=== PATIENT | female | born 2000 | race Caucasian/White ===

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

== ENCOUNTER 2021-11-23 12:42 | Emergency (ER) | payer MEDICAID, SELFPAY ==
[2021-11-23 12:43] VITALS: BP 112/72; PULSE 82; RESP 16; TEMP 36.1; O2SAT 100; BMI 22.8
[2021-11-23 13:29] VITALS: BP 112/72; PULSE 82; RESP 16; TEMP 36.1; O2SAT 100
--- NOTE | 2021-11-23 14:44 | EDS_ITS ---
HPI History of Present Illness Chief Complaint: General Illness Informant: patient Narrative Narrative: Patient presents with concern for Covid. Patient was around a patient with Covid. She evidently had relatively close contact. This was the brother of her boyfriend. She started to have symptoms on Monday, 21 November. She started off with nasal congestion runny nose. She states she has been sneezing even more than she has been coughing. She has developed some myalgias. Slight decrease in appetite taste and smell. She has been nauseated the whole time but has been able to eat generally. No diarrhea. She has had slight headache. She went to get Covid testing today. When she got there she felt very nauseated. She actually vomited and then felt lightheaded. She sat herself on the ground but did not pass out. She feels better now. Because this happened they called a squad to bring her here. She did not have chest pain or palpitations. PFSH PFSH Medical History no medical history Home Medications ondansetron 4 mg PO Q8H PRN #10 tab 11/23/21 [Rx Last Taken Unknown] Allergy/AdvReac Type Severity Reaction Status Date / Time No Known Allergies Allergy Verified 11/23/21 12:46 Social History Smoking Status: Never smoker ROS ROS ED Constitutional Constitutional ED: Reports chills, fever(s), subjective and sweats Eyes Eyes: Denies blurry vision or change in vision ENT ENT ED: Reports rhinorrhea and sore throat; Denies ear pain Cardiovascular Cardiovascular: Denies chest pain or palpitations Respiratory/Chest Respiratory/Chest: Reports cough; Denies dyspnea or sputum Gastrointestinal Gastrointestinal: Reports nausea and vomiting; Denies abdominal pain, constipation, diarrhea or melena Genitourinary Genitourinary ED: Denies dysuria or hematuria Musculoskeletal Musculoskeletal: Reports myalgias Integumentary Denies rash Neurologic Neurologic: Reports headache(s); Denies weakness Endocrine Endocrinology: Denies polydipsia or polyuria Allergic/Immunologic Allergic/Immunologic ED: Denies mouth swelling or urticaria EXAM Physical Exam Const Vital Signs: 11/23/21 12:43 11/23/21 13:29 11/23/21 14:38 Temperature 96.9 F L 96.9 F L Temperature Source Temporal Temporal Pulse Rate 82 82 Respiratory Rate 16 16 Respiratory Effort Normal Non-Labored Respiratory Pattern Normal Blood Pressure 112/72 112/72 Blood Pressure Mean 85 85 Pulse Ox 100 100 Oxygen Delivery Method Room Air Room Air Positive well nourished and well developed General Appearance ED: well developed and NAD; Negative for cyanotic or diaphoretic HEENT Reports moist mucous membranes Negative for trauma or tenderness Eyes PERRL and EOMs intact bilaterally General Eye ED: Negative for pale conjunctiva Neck no JVD Chest Wall inspection of chest normal Resp normal respiratory effort and clear to auscultation bilaterally Effort and Inspection: Negative for pain with movement Auscultation: Negative for rales, rhonchi or wheezes Cardio regular rate, regular rhythm and no murmurs GI normal to inspection, nondistended, normoactive bowel sounds and non-tender Palpation: soft Back/Spine no CVA tenderness Extremity normal to inspection General Extremety ED: Negative for edema or tenderness General Extremity: Negative for edema Neuro Sensorium / Orientation: alert; Negative for orientation impaired, lethargic or stuporous Psych mental status grossly normal Skin no rashes or lesions noted MDM MDM MDM Narrative Medical decision making narrative: Patient's Covid test is negative here. However, this is an antigen test that was will miss 15% of positive cases. She has known symptoms of Covid with known exposure. She still does have some naus ea. I will give her Zofran here. I do not think she requires any further work- up. She is not hypoxic nor short of breath. She is not tachycardic or hypotensive. Her exam is relatively normal. She has no criteria for monoclonal therapy. Plan will be to get her home on Zofran with home quarantine. Lab Data Attestation: I reviewed the patient's lab results. Discharge Plan Triage Chief Complaint: General Illness ED Provider: Zen Bagley Dx/Rx/DC Orders Clinical Impression: Close exposure to 2019-nCoV, Nausea and vomiting Prescriptions: New ondansetron 4 mg tablet,disintegrating 4 mg PO Q8H PRN (Reason: nausea and vomiting) Qty: 10 RF: 0 Primary Care Provider: Sina Steele Referrals: Sina Steele MD [Primary Care Provider] - 10-14 Days if not better Disposition Disposition: Home, Self Care
[2021-11-23] MEDS: Ondansetron ODT 4 MG Tablet PO (14:49)
[2021-11-23 14:55] VITALS: BP 118/63; PULSE 79; RESP 15; O2SAT 98
== END 2021-11-23 15:18 | disposition home or self-care (01) ==
PROVIDERS: Emergency Provider Emergency Medicine; PCP Family Medicine
DX: R11.2 Nausea with vomiting, unspecified (principal); Z20.822 Contact with and (suspected) exposure to COVID-19; M79.10 Myalgia, unspecified site; R42 Dizziness and giddiness; R51.9 Headache, unspecified
CPT/HCPCS: 87426; 99284

== ENCOUNTER 2022-09-10 21:54 | Emergency (ER) | payer BC, MEDICAID, SELFPAY ==
[2022-09-10 21:55] VITALS: BP 124/73; PULSE 70; RESP 16; TEMP 36; O2SAT 98; BMI 27.6
--- NOTE | 2022-09-10 22:00 | EX.ED.DYSGE1 ---
HPI History of Present Illness Chief Complaint: Dental Narrative Narrative: I did not participate in this patient's care PFSH PFS Medical History no medical history Home Medications hydrocodone-acetaminophen 5-325mg 5mg-325mg 1 tab PO 09/10/22 [History Last Taken 09/10/22 2030] medroxyprogesterone 150 mg/mL intramuscular suspension mg IM 09/10/22 [History Last Taken 08/10/22] penicillin V potassium 500 mg tablet 500 mg PO 4X/DAY #40 tabs 09/10/22 [Rx Last Taken Unknown] Allergy/AdvReac Type Severity Reaction Status Date / Time No Known Allergies Allergy Verified 09/10/22 21:55 Surgical History (Updated 09/10/22 @ 22:[address] Duane Sarah DO) Hx of wisdom tooth extraction Social History Smoking Status: Never smoker EXAM Physical Exam Const Vital Signs: 09/10/22 21:55 Temperature 96.8 F L Temperature Source Temporal Pulse Rate 70 Respiratory Rate 16 Blood Pressure 124/73 H Blood Pressure Mean 90 Pulse Ox 98 Oxygen Delivery Method Room Air Discharge Plan Triage Chief Complaint: Dental ED Provider: Duane Sarah Dx/Rx/DC Orders Clinical Impression: Postoperative pain Instructions: ED Dental Pain Prescriptions: New penicillin V potassium 500 MG tablet 500 mg PO 4X/DAY Qty: 40 0RF No Action hydrocodone-acetaminophen 5-325 mg tablet 1 tab PO medroxyprogesterone 150 mg/mL suspension IM Primary Care Provider: Airam Lee Referrals: Sina Steele MD [Non-Staff] - 5-7 Days Dentist,Augustus [STAFF PHYSICIAN] - 3-5 Days Disposition Disposition: Home, Self Care Discharge Date/Time: 09/10/22 22:41
--- NOTE | 2022-09-10 22:18 | ED.VIS.DENTA ---
HPI History of Present Illness Chief Complaint: Dental Informant: patient Onset/Context/Timing Onset: Yesterday Context: Gradual Onset Timing: Continuous Quality: Throbbing, sharp Location: Right lower third molar Worsened by: Nothing Relieved by: - (He) Associated Symptoms Assocated Symptom - Dental: jaw swelling; Negative for fever, face swelling, cold sensitivity or hot sensitivity Narrative Narrative: Patient presents with right lower dental pain that began yesterday. Patient states she had her wisdom teeth removed 3 days ago. Patient states she started having worsening pain yesterday. Patient states she has been taking hydrocodone with no improvement. Patient denies any fevers or chills. Patient describes her pain as throbbing and sharp. Patient states it is over the right lower third molar area. Patient states it was better with a warm compress to the area. Patient admits to some swelling of the jaw. Patient denies any hot or cold sensitivity. PFSH PFSH Medical History no medical history no medical history Home Medications hydrocodone-acetaminophen 5-325mg 5mg-325mg 1 tab PO 09/10/22 [History Last Taken 09/10/222029] medroxyprogesterone 150 mg/mL intramuscular suspension mg IM 09/10/22 [History Last Taken 08/10/22] penicillin V potassium 500 mg tablet 500 mg PO 4X/DAY #40 tabs 09/10/22 [Rx Last Taken Unknown] Allergy/AdvReac Type Severity Reaction Status Date / Time No Known Allergies Allergy Verified 09/10/22 21:55 Surgical History (Updated 09/10/22 @ 22:[address] Duane Sarah DO) Hx of wisdom tooth extraction Social History Smoking Status: Never smoker ROS ROS ED Constitutional Constitutional ED: Denies chills or fever(s) Eyes Eyes: Denies blurry vision or change in vision ENT ENT ED: Denies rhinorrhea or sore throat Cardiovascular Cardiovascular: Denies chest pain or palpitations Respiratory/Chest Respiratory/Chest: Denies cough or dyspnea Gastrointestinal Gastrointestinal: Denies nausea or vomiting Genitourinary Genitourinary ED: Denies dysuria or hematuria Musculoskeletal Musculoskeletal: Denies back pain or neck pain Integumentary Denies abscess or rash Neurologic Neurologic: Reports headache(s); Denies weakness Allergic/Immunologic Allergic/Immunologic ED: Denies mouth swelling or urticaria EXAM Physical Exam Const Vital Signs: 09/10/22 21:55 Temperature 96.8 F L Temperature Source Temporal Pulse Rate 70 Respiratory Rate 16 Blood Pressure 124/73 H Blood Pressure Mean 90 Pulse Ox 98 Oxygen Delivery Method Room Air Positive well nourished and well developed General Appearance ED: well developed and NAD HEENT HEENT Narrative: There is some tenderness and mild gingival edema over the right lower third molar area. There is some dried blood in this area. There is no evidence of dry socket. There is no fluctuance. There is no evidence of any abscess. There is no discharge or drainage. Oropharynx is clear. Airway is patent. There is no sublingual edema. There is no anterior neck swelling. There is no evidence of Ludewig's angina. Mouth ED: Yes oral and palatal mucosa normal Mouth: oral and palatal mucosa normal Throat: posterior oropharynx normal Neck no lymphadenopathy, supple and no JVD General: Negative for anterior neck swelling, tenderness or submandibular swelling Lymph Lymphatic: no lymphadenopathy noted Extremity normal to inspection Neuro oriented x3, CN's II-XII intact bilaterally, moves all extremities, no focal motor deficits and no sensory deficits noted Sensorium / Orientation: alert Motor Exam: strength 5/5 throughout Psych mental status grossly normal MDM MDM MDM Narrative Medical decision making narrative: Patient was given a dose of Pen-Vee K here. Patient was given a prescription for Pen-Vee K. Patient was instructed continue using the hydrocodone as needed for pain. Patient was instructed to follow-up with her oral surgeon in 3 to 5 days. Patient understood and was agreeable with the plan. All questions were answered. Discharge Plan Triage Chief Complaint: Dental ED Provider: Duane Sarah Dx/Rx/DC Orders Clinical Impression: Postoperative pain Instructions: ED Dental Pain Prescriptions: New penicillin V potassium 500 MG tablet 500 mg PO 4X/DAY Qty: 40 0RF No Action hydrocodone-acetaminophen 5-325 mg tablet 1 tab PO medroxyprogesterone 150 mg/mL suspension IM Primary Care Provider: Airam Lee Referrals: Sina Steele MD [Non-Staff] - 5-7 Days Dentist,Your [STAFF PHYSICIAN] - 3-5 Days Disposition Disposition: Home, Self Care
[2022-09-10] MEDS: Penicillin Vk 250 MG Tablet 500 MG PO (22:37)
== END 2022-09-10 22:41 | disposition home or self-care (01) ==
PROVIDERS: Emergency Provider Emergency Medicine; Visit Provider Emergency Medicine
DX: G89.18 Other acute postprocedural pain (principal); K08.89 Other specified disorders of teeth and supporting structures
CPT/HCPCS: 99282

== ENCOUNTER → 2023-02-03 | Outpatient (CLI) | payer MEDICAID, SELFPAY ==
--- NOTE | 2023-02-03 17:51 | MRI_ITS ---
EXAM: MR LEFT LOWER EXTREMITY WITHOUT INTRAVENOUS CONTRAST, KNEE CLINICAL INDICATION: Pain TECHNIQUE: Multiplanar and multisequence MR images of the left knee without intravenous contrast. This report was created using [employer] report generation technology. COMPARISON: None. FINDINGS: BONES/JOINTS: Unremarkable. No fracture. No abnormal bone marrow signal. No synovial hypertrophy. No intra-articular body. EXTENSOR MECHANISM: Unremarkable. MEDIAL MENISCUS: Unremarkable. LATERAL MENISCUS: Unremarkable. MEDIAL CAPSULE/SUPPORTING STRUCTURES: Unremarkable. Intact. LATERAL CAPSULE/SUPPORTING STRUCTURES: Unremarkable. Lateral collateral ligamentous complex, inclusive of the popliteal tendon, are intact. ANTERIOR CRUCIATE LIGAMENT: Unremarkable. Intact. POSTERIOR CRUCIATE LIGAMENT: Unremarkable. Intact. MUSCLES: Unremarkable. CARTILAGE: Unremarkable. Intact. FLUID: Unremarkable. No joint effusion. OTHER SOFT TISSUES: Unremarkable. No popliteal cyst. MRI/Lower Ext Joint Only (Routine) IMPRESSION: No significant internal derangement. Electronically Signed: Wicho Lazcano MD at 21:55 EST ,
== END | disposition home or self-care (01) ==
LOC: MRI 17:47
DX: M25.562 Pain in left knee (principal)
CPT/HCPCS: 73721

== ENCOUNTER 2023-07-06 10:00 | Outpatient (RCR) | payer MEDICAID, SELFPAY ==
--- NOTE | 2023-02-21 17:17 | HP.PTEVAL_ITS ---
Patient's Visit Information LORETTA GUILLORY is a 22 year old F referred to Physical Therapy by KARUNA Sagastume with a diagnosis of L knee pain. Date of Evaluation: 02/21/23 Physical Therapist: Daniel Baumann, PT, ATC - Visit Plan Frequency: 2-3x /Week Duration: 4-6 Weeks Plan: L LE stretching and strengthening, balance and proprio, core strengthening, bike and HEP - Subjective Pt reports L knee has been sore for 5-6 years. 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 Pt reports the pain has began to limit her ability to bowl. Pt reports now when she bowls the pain is so bad she cries. Pt notes she had PT at the end of last year at a different facility that made no difference. Pt reports the most pain is under her knee cap. Pt reports on occasion, the pain will shoot up to her hip. Pt denies her L knee locking up, giving out, or popping. Pt denies any prior Hx of L knee complications prior to this episode. Pt reports occasional sleep difficulty secondary to pain. Pt reports she has no stairs at home, but notes she has severe difficulty with stairs at this time. Pt reports she often has difficulty with carrying groceries secondary to pain. 6/10 pain at rest, 10/10 pain at worst. - Pain L knee Pain Intensity (Out of 10): 6 Pain Intensity Range: 10 - Objective Neuro: B LE sensation is WNL to light touch. B achilles 2/3. Palpation: Crepitus with AROM. No obvious deformity. Painful on patellar tendon and medial patellar border. Girth at joint line: R knee 38 cm, L knee 41 cm. ROM: R knee 0-118, L knee 0-135. MMT: R knee flex= 39, ext= 42 #F; L knee flex= 24, ext= 17 #F. Pos 90/90 test (40 degree lag), apley compression and distraction test, pos knee valgus with forward lunge - Balance/Special Test Scores Lower Extremity Functional Score: 60 - Goals Goal 1:: Decrease L knee pain x 50% to aid with sleep Goal Time Frame: 4-6 Weeks Goal 2:: Increase L knee strength x 15#F to aid with return to sport without limitation Goal Time Frame: 4-6 Weeks Goal 3:: Increase L knee flexion ROM x 10 degrees to aid with decreasing pain Goal Time Frame: 4-6 Weeks Goal 4:: I with HEP Goal Time Frame: 4-6 Weeks - Rehabilitation Potential Physical Therapy Diagnosis: Pt has L knee pain, weakness, and 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 For Medicare and Medicare HMO plans, please review the plan of care and approve it. It will need to be FAXED BACK to us at [phone] for Medicare purposes. For Medicare only, by signing this I certify the plan of care. Please let me know if there are questions or concerns regarding this plan of care. Physician Signature: Date:
--- NOTE | 2023-04-17 14:32 | HP.PTREVAL ---
KARUNA Sagastume, It has been my pleasure to treat LORETTA GUILLORY over the last 9 visits for L knee pain. Please see the progress note below for an update on the physical therapy plan of care! Subjective: My knee is still sore when I do daily activities. I wont even try to bowl yet because of the pain Objective/Function: L knee pain ranges from 4-6/10. L knee MMT: flex= 18, ext= 20. L knee ROM: 0-118. L knee pain and strength are improving, but pt is still limited with sport and IADL's. Plan Plan: Continue with major focus on core and L LE strengthening. Balance/Gait/Functional tests - Balance/Special Test Scores Lower Extremity Functional Score: 55 Goals Goal 1:: Decrease L knee pain x 50% to aid with sleep Goal Time Frame: 4-6 Weeks Goal Progress: Progressing Goal 2:: Increase L knee strength x 15#F to aid with return to sport without limitation Goal Time Frame: 4-6 Weeks Goal Progress: Progressing Goal 3:: Increase L knee flexion ROM x 10 degrees to aid with decreasing pain Goal Time Frame: 4-6 Weeks Goal Progress: Not Progressing Goal 4:: I with HEP Goal Time Frame: 4-6 Weeks Goal Progress: Progressing Anticipated Interventions Patient/Client Instruction: Educate patient on: Condition, Plan of Care For the Purpose of:: To improve self management Therapeutic Exercise to Include: Strength training, Endurance training, Balance training, Flexibilty training, Gait and locomotor training, Dynamic Lumbar Stabilization For the Purpose of:: To decrease pain, To increase ROM, To improve muscle performance and motor function Cryotherapy (ice pack, ice massage): Yes For the Purpose of:: To decrease pain Please do not hesitate to contact me at [phone] by phone or if you have questions or concerns regarding this new plan of care! Sincerely, Daniel Baumann, PT, ATC
--- NOTE | 2023-05-26 10:34 | HP.PTREVAL ---
Re-Evaluation Intro: KARUNA Sagastume, It has been my pleasure to treat LORETTA GUILLORY over the last 17 visits for L knee pain. Please see the progress note below for an update on the physical therapy plan of care! Subjective Subjective: I feel better overall, but I still cant bowl yet Objective Objective/Function: L knee pain 4/10 currently, increases to 6/10 after work L knee flex ROM 130 degrees L knee MMT: flex= 28, ext= 32 #F Plan Plan Plan: Continue with major focus on core and L LE strengthening. Balance/Gait/Functional tests Balance/Special Test Scores Lower Extremity Functional Score: 65 Goals Goals Goal 1:: Decrease L knee pain x 50% to aid with sleep Goal Time Frame: 4-6 Weeks Goal Progress: Progressing Goal 2:: Increase L knee strength x 15#F to aid with return to sport without limitation Goal Time Frame: 4-6 Weeks Goal Progress: Progressing Goal 3:: Increase L knee flexion ROM x 10 degrees to aid with decreasing pain Goal Time Frame: 4-6 Weeks Goal Progress: Progressing Goal 4:: I with HEP Goal Time Frame: 4-6 Weeks Goal Progress: Progressing Anticipated Interventions Anticipated Interventions Patient/Client Instruction: Educate patient on: Condition and Plan of Care For the Purpose of:: To improve self management Therapeutic Exercise to Include: Strength training, Endurance training, Balance training, Flexibilty training, Gait and locomotor training and Dynamic Lumbar Stabilization For the Purpose of:: To decrease pain, To increase ROM and To improve muscle performance and motor function Cryotherapy (ice pack, ice massage): Yes For the Purpose of:: To decrease pain Re-Evaluation Ending Re-evaluation ending: Please do not hesitate to contact me at [phone] by phone or if you have questions or concerns regarding this new plan of care! Sincerely, Daniel Baumann, PT, ATC
--- NOTE | 2023-07-06 10:27 | HP.PTDCSUM ---
Discharge Summary D/C summary: It has been my pleasure to treat LORETTA GUILLORY referred by AKRUNA Sagastume, with the diagnosis of L knee pain for a total of 24 visit(s). Discharge Date: Please see the following information for a summary of their discharge status. Subjective Subjective: I felt like I was getting better, but now I feel like I hit a wall. Pain L knee: Pain Intensity (Out of 10): 5 Hips: Pain Intensity (Out of 10): 6 Overall Improvement % Improvement: 25 Objective Objective/Function: L knee pain ranges from 5-7/10 L knee MMT: flex= 23, ext= 24 #F L knee flex ROM: 120 degrees Pt has not progressed as expected at this time. Pain is still limiting and strength is lacking even after a sufficient core and LE strengthening program. Goals Goal 1:: Decrease L knee pain x 50% to aid with sleep Goal Progress: Not Progressing Goal 2:: Increase L knee strength x 15#F to aid with return to sport without limitation Goal Progress: Not Progressing Goal 3:: Increase L knee flexion ROM x 10 degrees to aid with decreasing pain Goal Progress: Not Progressing Goal 4:: I with HEP Goal Progress: Goal Met Plan Plan: Discontinue and recommend pt to follow up with Dr. D/C Information d/c sentence: If there are questions or concerns regarding this patient's physical therapy, please feel free to call me at [phone]. Thank you for the referral of this patient. Sincerely, Daniel Baumann, PT, ATC Balance/Gait/Functional tests Balance/Special Test Scores Lower Extremity Functional Score: 60
== END 2023-07-06 10:39 | disposition home or self-care (01) ==
LOC: PT 10:00
DX: M76.52 Patellar tendinitis, left knee (principal); M25.562 Pain in left knee; G89.29 Other chronic pain; M76.32 Iliotibial band syndrome, left leg
CPT/HCPCS: 97110; 97161; 97164

== ENCOUNTER 2023-09-25 16:30 | Outpatient (RCR) | payer MEDICAID, SELFPAY ==
--- NOTE | 2023-08-25 09:23 | HP.PTEVAL ---
Patient's Visit Information Visit Information Visit Information: LORETTA GUILLORY is a 22 year old F referred to Physical Therapy by KARUNA Sagastume with a diagnosis of Patellar tendonitis. Date of Evaluation: 08/25/23 Physical Therapist: Daniel Baumann, PT, ATC Visit Plan Frequency: 2-3x /Week Duration: 4-6 Weeks Plan: LE stretching to increase flexibility, LE strengthening, Ice, Ultrasound Subjective Subjective: Pt reports L knee has been sore for 5-6 years. 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 Pt reports the pain has began to limit her ability to bowl. Pt reports she has returned to bowling at this time, but continues to be sore after her games. Pt notes she had PT at the end of last year at a different facility that made no difference and then had PT here, which helped very little. Pt reports the most pain is under her knee cap. Pt reports on occasion, the pain will shoot up to her hip. Pt reports her L knee will give out on occasion, but doesnt pop. Pt denies any prior Hx of L knee complications prior to this episode. Pt reports occasional sleep difficulty secondary to pain. Pt reports she has no stairs at home, but notes she has severe difficulty with stairs at this time. Pt notes she has to negotiate 3 flights of stairs to get to her classes, which results in severe pain for hours. 5/10 pain at rest, 8/10 pain at worst. Pt reports she had an MRI recently which revealed no significant abnormalities. Pain L knee: Pain Intensity (Out of 10): 5 Pain Intensity Range: 8 Objective Objective: Neuro: LE sensation WNL to light touch; LE reflexes 1/3 Palpation: No crepitus felt while moving through ROM; point tenderness in medial joint line during distraction during medial meniscus. ROM: - R Knee: 0 - 130 deg - L Knee: 0 - 10 - 110 deg MMT: - L Knee Flex: 20 #F; Ext: 19 #F - R Knee Flex: 28 #F; Ext: 48 #F Special tests: Positive Codie's test; Positive 90/90 (45 deg lag); Positive UGO test (indicating tight hips); Positive Andrew test, Positive Trujillo test indicating tight hamstrings Balance/Special Test Scores Lower Extremity Functional Score: 62 Goals Goal 1:: Pt. to improve L Knee Flex 8 #F and L Knee Ext: 29 #F to match contralateral R knee in order to return to prior level of function and return to sport and school pain free. Goal Time Frame: 4-6 Weeks Goal 2:: Pt. to improve L Knee flexion ROM to 130 deg of flexion and 0 deg of extension to match contralateral R knee in order to return to prior level of function and return to sport and school pain free. Goal Time Frame: 4-6 Weeks Goal 3:: Pt. to improve the lower extremity functional score by 9 points to show a meaningful clinical important difference to aid in returning to prior level of function and return to sport and school pain free. Goal Time Frame: 4-6 Weeks Goal 4:: Pt. to be I in HEP Goal Time Frame: 4-6 Weeks Rehabilitation Potential Physical Therapy Diagnosis: Pain, weakness, lack of ROM and disrupted ADLs and iADLs secondary to patellar tendonitis Rehabilitation Potential: Good Anticipated Interventions Patient/Client Instruction: Educate patient on: Condition and Plan of Care For the Purpose of:: To improve self management Therapeutic Exercise to Include: Strength training, Body mechanics, Flexibilty training and Active ROM For the Purpose of:: To decrease pain, To increase ROM, To increase flexibility/ROM, To improve endurance, To improve health and function and To improve self management Cryotherapy (ice pack, ice massage): Yes (To reduce pain) Ultrasound (thermal/non thermal): Yes (To decrease inflammation, increase blood flow and reduce pain) For the Purpose of:: To decrease pain, To decrease swelling/inflammation and To decrease soft tissue restriction Text: Thank you for the opportunity to evaluate your patient. For Medicare and Medicare HMO plans, please review the plan of care and approve it. It will need to be FAXED BACK to us at [phone] for Medicare purposes. For Medicare only, by signing this I certify the plan of care. Please let me know if there are questions or concerns regarding this plan of care. Physician Signature: Date:
--- NOTE | 2023-11-23 08:19 | HP.PT.NRP ---
Patient Information Patient Information: OLRETTA GUILLORY was seen in my office for initial evaluation on 08/25/23. The following Plan of Care was established for this patient: POC Established Initial Frequency: 2-3x /Week Initial Duration: 4-6 Weeks Anticipated Interventions Patient/Client Instruction: Educate patient on: Condition and Plan of Care For the Purpose of:: To improve self management Therapeutic Exercise to Include: Strength training, Body mechanics, Flexibilty training and Active ROM For the Purpose of:: To decrease pain, To increase ROM, To increase flexibility/ROM, To improve endurance, To improve health and function and To improve self management Cryotherapy (ice pack, ice massage): Yes (To reduce pain) Ultrasound (thermal/non thermal): Yes (To decrease inflammation, increase blood flow and reduce pain) For the Purpose of:: To decrease pain, To decrease swelling/inflammation and To decrease soft tissue restriction Last Seen Last Seen: This patient was last seen in our office . Pertinent comments regarding their Physical therapy will appear below: Pt was treated for 6 PT visits for knee pain through the date of 09/25/23. Pt has not returned through todays date and is discontinued at this time. At this point I will be discontinuing this patient from physical therapy. I would be happy to see this patient again in the future if found appropriate by the physician. Thank you! Daniel Baumann, PT, ATC Balance/Gait/Functional tests Balance/Special Test Scores Lower Extremity Functional Score: 62
== END 2023-09-25 19:00 | disposition home or self-care (01) ==
LOC: PT 16:30
DX: M76.52 Patellar tendinitis, left knee (principal); M25.562 Pain in left knee; M76.32 Iliotibial band syndrome, left leg; M70.52 Other bursitis of knee, left knee; G89.29 Other chronic pain
CPT/HCPCS: 97035; 97110; 97161

== ENCOUNTER → 2024-04-03 | Outpatient (CLI) | payer MEDICAID, SELFPAY ==
--- NOTE | 2024-04-03 09:30 | RAD_ITS ---
STUDY: X-RAY LEFT FOOT, FIFTH TOE REASON FOR EXAM: Female, 23 years old. Left little to inj TECHNIQUE: 3 view(s) of the toe were obtained. COMPARISON: None. FINDINGS: Normal visualized metatarsus. Normal metatarsophalangeal (M.T.P) joint. Normal interphalangeal joints. Normal phalanges and interphalangeal joints. The soft tissue structures are unremarkable. RAD/Toe(s) Min 2 Views IMPRESSION: Normal x-ray of the toe. Electronically Signed: Raulito Mitchell MD at 9:55 EDT ,
== END | disposition home or self-care (01) ==
PROVIDERS: Referring Provider Physician Assistant Surgical; Visit Provider Physician Assistant Surgical
DX: S90.122A Contusion of left lesser toe(s) without damage to nail, initial encounter (principal); X58.XXXA Exposure to other specified factors, initial encounter
CPT/HCPCS: 73660

== ENCOUNTER → 2024-06-11 | Outpatient (CLI) | payer MEDICAID, SELFPAY ==
[2024-06-17 18:04] LABS: HPV Reflexed? NOT INDICATED
== END | disposition home or self-care (01) ==
LOC: LABSPEC 09:34
PROVIDERS: PCP Nurse Practitioner Family; Visit Provider Nurse Practitioner Family
DX: Z01.419 Encounter for gynecological examination (general) (routine) without abnormal findings (principal)
CPT/HCPCS: 88142

== ENCOUNTER 2024-10-27 19:06 | Emergency (ER) | payer MEDICAID, SELFPAY ==
[2024-10-27 19:07] VITALS: BP 114/80; PULSE 80; RESP 18; TEMP 37; O2SAT 98
--- NOTE | 2024-10-27 19:37 | EDS_ITS ---
HPI History of Present Illness Chief Complaint: Cold Sx Narrative Narrative: Chief complaint and HPI: Cold symptoms. 23-year-old female with no significant past medical history presents for evaluation of cold symptoms. Patient states for the past 5 days she has had headache, nasal congestion, cough, and nausea. She states that she has developed some nonbloody emesis and was unable to take her [id number] cold medicine today. She denies any fever, shortness of breath, chest pain, diarrhea, dysuria. Patient states that she is on contraceptives and does not believe herself to be . Review of systems: See HPI Medications: As listed on the chart Allergies: As listed on the chart PFSH: Per chart Vital signs: As listed on the chart. Reviewed. Physical exam: Gen: A&O x3, NAD Head: Normocephalic, atraumatic Eyes: No sclera icterus, conjunctiva clear, PERRL, EOMI ENT: TMs clear BL, mildly dry mucous membranes, posterior oropharynx unremarkable, uvula midline, tonsils not enlarged, no tonsillar exudates, no sinus tenderness, positive nasal congestion Neck: Trachea midline, No JVD, Full ROM, No meningismus CV: RRR, no murmurs, no peripheral edema Resp: Lungs CTA BL, no w/r/c GI: Abd soft, non-distended, non-tender, no r/r/g Musc: Full ROM, no deformity Skin: Warm, dry, no rash Neuro: Alert, oriented, grossly intact, sensation intact Psych: Cooperative, appropriate mood and affect PFS PFS Home Medications ?Medication ?Instructions ?Recorded ?Last Taken ?Type drospirenone (contraceptive) 4 mg 1 tab PO DAILY 07/17/23 Unknown History (28) tablet (Slynd) ondansetron 4 mg disintegrating 4 mg PO Q8H PRN PRN Nausea #10 tabs 10/27/24 Unknown Rx tablet Allergy/AdvReac Type Severity Reaction Status Date / Time No Known Allergies Allergy Verified 10/27/24 19:07 Surgical History Hx of wisdom tooth extraction Social History Smoking Status: Never smoker EXAM Physical Exam Const Vital Signs: 10/27/24 19:07 10/27/24 19:14 10/27/24 19:15 Temperature 98.6 F Temperature Source Oral Pulse Rate 80 Respiratory Rate 18 Respiratory Effort Normal Non-Labored Normal Non-Labored Respiratory Depth Normal Respiratory Pattern Normal Normal Blood Pressure 114/80 Blood Pressure Mean 91 Pulse Ox 98 Oxygen Delivery Method Room Air Room Air 10/27/24 21:07 10/27/24 22:43 Temperature 97.8 F Temperature Source Pulse Rate 75 78 Respiratory Rate 18 18 Respiratory Effort Respiratory Depth Respiratory Pattern Blood Pressure 113/51 L 107/61 Blood Pressure Mean 71 76 Pulse Ox 100 100 Oxygen Delivery Method Room Air MDM MDM MDM Narrative Medical decision making narrative: 23-year-old female presents for evaluation of cold-like symptoms. Symptoms consist of headache, nasal congestion, sore throat, cough, nausea, vomiting. Patient is mildly dry on physical exam NS bolus and Zofran ordered. Toradol ordered but will not be given until urine is negative. Differential diagnosis includes but is not limited to viral illness, influenza, COVID-19 infection, pneumonia, dehydration, UTI, , electrolyte abnormality, suspect less likely intra-abdominal pathology. Basic labs ordered including chest x-ray. CBC without leukocytosis or anemia. CMP without electrolyte abnormality or SHANT. No transaminitis. Lipase unremarkable. UA negative for UTI. Urine negative. Chest x-ray was interpreted by me, ED physician no pneumonia, effusion, cardiomegaly, pneumothorax. On reevaluation, patient's headache has improved however she is still endorsing nausea. Reglan ordered with p.o. challenge. Patient's nausea improved. Patient is able to tolerate p.o. intake without any vomiting. Patient is stable to discharge home. Suspect viral etiology. Follow-up with PCP. Patient confirmed understanding of plan. Impression: 1. Viral syndrome 2. Nausea and vomiting Lab Data Labs: Laboratory Results - last 24 hr 10/27/24 19:49 WBC 8.0 RBC 4.34 Hgb 14.2 Hct 39.2 MCV 90.3 MCH 32.7 H MCHC 36.2 H RDW Std Deviation 43.3 RDW Coeff of Shadia 13.0 Plt Count 282 MPV 9.5 Immature Gran % (Auto) 0.100 Neut % (Auto) 62.7 Lymph % (Auto) 27.5 [place] % (Auto) 7.8 Eos % (Auto) 1.5 Baso % (Auto) 0.4 Absolute Neuts (auto) 5.0 Absolute Lymphs (auto) 2.21 Nucleated RBC % 0 Sodium 140 Potassium 3.7 Chloride 107 Carbon Dioxide 26.0 Anion Gap 7 BUN 14 Creatinine 1.00 Estim Creat Clear Calc 83.45 Est GFR (MDRD) Af Amer 89 Est GFR (MDRD) Non-Af 73 BUN/Creatinine Ratio 14.1 Glucose 96 Calcium 9.3 Total Bilirubin 0.30 AST 11 L ALT 17 Alkaline Phosphatase 75 Total Protein 7.4 Albumin 3.7 Globulin 3.7 Albumin/Globulin Ratio 1.0 Lipase 28 Urine Color Yellow Urine Clarity Clear Urine pH 8.0 Ur Specific [place] 1.015 Urine Protein Negative Urine Glucose (UA) Normal Urine Ketones Negative Urine Occult Blood Negative Urine Nitrite Negative Urine Bilirubin Negative Urine Urobilinogen Normal Ur Leukocyte Esterase Negative Urine RBC 0 SEEN Urine WBC 0-5 SEEN Ur Squamous Epith Cells 0-5 SEEN Urine Bacteria RARE Urine Mucus 0 SEEN Urine Test Negative Radiography Diagnostic Testing: Clinical Impression(s) from Imaging Studies Chest X-Ray 10/27/24 20:00 IMPRESSION: No radiographic evidence of acute cardiopulmonary disease. Electronically Signed: Daniel Mcintyre MD at 20:53 EST Reading Location ID and State: [address] [place] [address] , Service support , Discharge Plan Triage Chief Complaint: Cold Sx Other Complaint: Nausea/Vomiting ED Provider: Abbe Pina Dx/Rx/DC Orders Clinical Impression: Viral syndrome Instructions: ED Viral Syndrome (Adult) Prescriptions: New ondansetron 4 mg tablet,disintegrating 4 mg PO Q8H PRN PRN (Reason: Nausea) Qty: 10 0RF No Action Slynd 4 mg (28) tablet 1 tab PO DAILY Patient Comments: TAKE 1 TABLET BY MOUTH EVERY DAY Primary Care Provider: Care Physician,No Primary Referrals: Fantasma Davis MD [Med Staff - Active Staff] - 3-5 Days Care Physician,No Primary [Primary Care Provider] - Activity Restrictions/Additional Instructions: Follow-up with your primary care physician if you do not have one follow-up with the one above. Return back to the ED if symptoms change or worsen. Print Language: Armenian Disposition Disposition: Home, Self Care Discharge Date/Time: 10/27/24 22:47
[2024-10-27] MEDS: Ondansetron 4 MG/2 ML Vial IV (19:50)
[2024-10-27] MEDS: 0.9% Normal Saline (1000mL) 1,000 ML 1000 ML IV (19:50)
--- NOTE | 2024-10-27 20:00 | RAD_ITS ---
EXAM: XR CHEST, 2 VIEWS CLINICAL INDICATION: Cough TECHNIQUE: Frontal and lateral views of the chest. COMPARISON: No relevant prior studies available. FINDINGS: LUNGS AND PLEURAL SPACES: Unremarkable. No consolidation or edema. No pneumothorax. No effusion. HEART: Unremarkable. Cardiac silhouette not enlarged. MEDIASTINUM: Central airways and mediastinal contour are unremarkable. BONES/JOINTS: Unremarkable. No acute fracture. SOFT TISSUES: Unremarkable. RAD/Chest PA and Lateral IMPRESSION: No radiographic evidence of acute cardiopulmonary disease. Electronically Signed: Daniel Mcintyre MD at 20:53 EST ,
[2024-10-27 20:01] LABS: Mucous, Urine 0 SEEN /hpf (<or=2+); Red Blood Cells-Urine 0 SEEN /hpf (0-5)
[2024-10-27 20:05] LABS: Absolute Lymphocyte Count 2.21 X10^3/uL (0.83-4.51); Basophil# 0.03 X10^3/uL; Basophil% 0.4 % (0-1); Eosinophil# 0.12 X10^3/uL; Eosinophils% 1.5 % (0-5); Hematocrit 39.2 % (37-47); Hemoglobin 14.2 g/dL (12.0-15.0); Lymphocyte # 2.21 X10^3/ul (0.83-4.51); Lymphocyte % 27.5 % (19-41); Mean Corp Hgb Conc 36.2 g/dL (32-36); Mean Corpuscular Hgb 32.7 pg (27.0-32.0); Mean Corpuscular Volume 90.3 fL (81-99); Mean Platelet Vol. 9.5 fl (6.2-12.0); Monocyte# 0.63 X10^3/uL; Monocyte% 7.8 % (0-10); NRBC Flagged by Analyzer 0 % (0-5); Neutrophil # 5.03 X10^3/uL (2.7-7.7); Neutrophil % 62.7 % (47-70); Platelet Count 282 K/mm3 (150-450); RBC Distribution Width SD 43.3 fl (35.1-43.9); Red Blood Count 4.34 M/mm3 (4.2-5.4)
[2024-10-27 20:08] LABS: Color, Urine Yellow (Yellow); Glucose, Dipstick Normal (Normal); Ketone-Dipstick Negative (Negative); Leukocyte Esterase-Dipstick Negative /ul (Negative); Nitrite-Dipstick Negative (Negative); Occult Blood-Urine Negative /ul (Negative); Protein-Dipstick Negative (Negative); Specific Gravity, Urine 1.015 (1.002-1.030); Urine Bilirubin Dipstick Negative (Negative); Urine Clarity Clear (Clear); Urine Urobilinogen Normal (Normal)
[2024-10-27 20:21] LABS: AST(SGOT) 11 U/L (15-37); Alanine Aminotransfer ALT/SGPT 17 U/L (13-56); Albumin, Serum 3.7 g/dL (3.2-5.0); Alkaline Phosphatase 75 U/L (45-117); Anion Gap 7 (5-15); BUN 14 mg/dL (7-18); BUN/Creat Ratio 14.1 RATIO (10-20); Calcium,Total 9.3 mg/dL (8.5-10.1); Chloride 107 mmol/L (98-107); EST Glomerular Filtration Rate 73 mL/min (>60); Est Glom Filt Rate - Afr Amer 89 mL/min (>60); Estimated Creatinine Clearance 83.45 ml/min; Globulin 3.7 g/dL (2.2-4.2); Glucose 96 mg/dL (74-106); Lipase 28 U/L (13-75); Potassium 3.7 mmol/L (3.5-5.1); Protein, Total 7.4 g/dL (6.4-8.2); Sodium Level 140 mmol/L (136-145)
[2024-10-27 20:50] LABS: Internal QC Validated? YES +Cl - CLEAR BKGD; Pregnancy, Urine Negative Negative
[2024-10-27 20:52] LABS: Bacteria RARE /hpf (None Seen); Squamous Epithelial Cells - UA 0-5 SEEN /hpf (5-10); White Blood Cells 0-5 SEEN /hpf (0-5)
[2024-10-27] MEDS: Ketorolac 15 MG/ML Vial IV (21:03)
[2024-10-27 21:07] VITALS: BP 113/51; PULSE 75; RESP 18; O2SAT 100
[2024-10-27] MEDS: Metoclopramide 10 MG/2 ML Vial 5 MG IV (21:27)
[2024-10-27 22:43] VITALS: BP 107/61; PULSE 78; RESP 18; TEMP 36.6; O2SAT 100
== END 2024-10-27 22:47 | disposition home or self-care (01) ==
PROVIDERS: Emergency Provider Surgery; Referring Provider Surgery; Visit Provider Surgery
DX: B34.9 Viral infection, unspecified (principal)
CPT/HCPCS: 71046; 80053; 81001; 81025; 83690; 85025; 87631; 96361; 96374; 96375; 99285; A4216; J2405

== ENCOUNTER → 2025-04-28 | Outpatient (CLI) | payer MEDICAID, SELFPAY ==
[2025-04-28 10:40] LABS: Absolute Lymphocyte Count 2.59 X10^3/uL (0.83-4.51); Absolute Neutrophil Count 2.4 X10^3/uL (2.0-7.7); Basophil# 0.03 X10^3/uL; Basophil% 0.5 % (0-1); Eosinophil# 0.17 X10^3/uL; Eosinophils% 3.1 % (0-5); Hematocrit 39.6 % (37-47); Hemoglobin 13.2 g/dL (12.0-15.0); Lymphocyte # 2.59 X10^3/ul (0.83-4.51); Lymphocyte % 46.5 % (19-41); Mean Corp Hgb Conc 33.3 g/dL (32-36); Mean Corpuscular Hgb 29.9 pg (27.0-32.0); Mean Corpuscular Volume 89.6 fL (81-99); Mean Platelet Vol. 9.4 fl (6.2-12.0); Monocyte# 0.39 X10^3/uL; NRBC Flagged by Analyzer 0 % (0-5); Neutrophil # 2.38 X10^3/uL (2.7-7.7); Neutrophil % 42.7 % (47-70); Platelet Count 289 K/mm3 (150-450); RBC Distribution Width SD 42.7 fl (35.1-43.9); Red Blood Count 4.42 M/mm3 (4.2-5.4); White Blood Count 5.6 K/mm3 (4.4-11.0)
[2025-04-28 11:27] LABS: ALB/GLOB Ratio 1.5 RATIO (0.9-2.4); AST(SGOT) 20 U/L (<=31); Alanine Aminotransfer ALT/SGPT 15 U/L (<=34); Albumin, Serum 4.2 g/dL (3.5-5.0); Alkaline Phosphatase 82 U/L (35-104); Anion Gap 12 (5-15); BUN 14 mg/dL (4-19); BUN/Creat Ratio 15.6 RATIO (10-20); Calcium,Total 9.6 mg/dL (7.6-11.0); Carbon Dioxide 20.9 mmol/L (21.0-32.0); Chloride 109 mmol/L (98-108); Creatinine, Serum 0.89 mg/dL (0.70-1.20); EST Glomerular Filtration Rate 94 (>60); Ferritin 72 ng/mL (22-378); Globulin 2.9 g/dL (2.2-4.2); Glucose 88 mg/dL (70-99); Potassium 3.9 mmol/L (3.3-5.1); Protein, Total 7.1 g/dL (5.9-8.4); Sodium Level 142 mmol/L (133-145); Total Bilirubin 0.44 mg/dL (0.00-1.30); Vitamin B12 413 pg/mL (180-914); Vitamin D,25 Hydroxy 20.4 ng/mL (30-100)
[2025-04-28 12:31] LABS: Hemoglobin A1c 5.2 % (<=5.6)
[2025-04-30 17:08] LABS: Thyroglobulin Antibody < 1.0 IU/mL (0.0-0.9); Thyroid Peroxidase AB < 9 IU/mL (0-34); Thyroid Stim Immunoglob <0.10 IU/L (0.00-0.55)
== END | disposition home or self-care (01) ==
LOC: PAVLAB 10:22
PROVIDERS: PCP Nurse Practitioner Family; Referring Provider Family Medicine; Visit Provider Family Medicine
DX: R53.83 Other fatigue (principal)
CPT/HCPCS: 36415; 80053; 82306; 82533; 82607; 82728; 83036; 83735; 84439; 84443; 84445; 85025; 86376; 86800

== ENCOUNTER 2025-06-30 21:13 | Emergency (ER) | payer MEDICAID, SELFPAY ==
[2025-06-30 21:14] VITALS: BP 123/72; PULSE 86; RESP 16; TEMP 36; O2SAT 100; BMI 30.9
--- NOTE | 2025-06-30 21:23 | EX.ED.DYSGE1 ---
HPI History of Present Illness Chief Complaint: Ear Problem Detail of Chief Complaint: Painful expanding bump right earlobe Onset/Context/Timing Onset: Days Context: Sudden Onset Timing: Continuous Quality: Small painful bump where the earlobe attaches to the ear. Location: [place] Current Severity: Mild Maximum Severity: Moderate Worsened by: Palpation Relieved by: Nothing Associated Symptoms Associated Symptoms: None Narrative Narrative: Patient is a 24-year-old female. She presents for painful bump that is got bigger since onset a couple of days ago. She denies fever, chills night sweats. Denies a traumatic fever, heart murmur mitral valve prolapse or SBE. She has had no new ear piercings. She has not noted redness to her ear. Prior similar symptoms: No Recent Illness/Hospitalization: No PFSH PFSH Home Medications ?Medication ?Instructions ?Recorded ?Last Taken ?Type drospirenone (contraceptive) 4 mg 1 tab PO DAILY 07/17/23 Unknown History (28) tablet (Slynd) ondansetron 4 mg disintegrating 4 mg PO Q8H PRN PRN Nausea #10 tabs 10/27/24 Unknown Rx tablet Allergy/AdvReac Type Severity Reaction Status Date / Time No Known Allergies Allergy Verified 06/30/25 21:15 Surgical History Hx of wisdom tooth extraction Social History Smoking Status: Never smoker ROS ROS ED Constitutional Constitutional ED: Denies chills, fever(s), subjective or sweats ENT ENT ED: Reports ear pain right ([place]); Denies rhinorrhea or sore throat Cardiovascular Cardiovascular: Denies chest pain Respiratory/Chest Respiratory/Chest: Denies cough or dyspnea Musculoskeletal Musculoskeletal: Denies neck pain Integumentary Reports abscess; Denies rash Hematologic/Lymphatic Hematologic/Lymphatic: Reports systems reviewed and no addt'l complaints, except as documented EXAM Physical Exam Const Vital Signs: 06/30/25 21:14 Temperature 96.8 F L Temperature Source Temporal Pulse Rate 86 Respiratory Rate 16 Blood Pressure 123/72 H Blood Pressure Mean 89 Pulse Ox 100 Oxygen Delivery Method Room Air Positive well nourished and well developed Constitutional Narrative: Blood pressure slightly elevated. She is afebrile. General Appearance ED: well developed and NAD HEENT HEENT Narrative: Head is atraumatic no cephalic. Ears remarkable for a small painful fluctuant area involving the earlobe where it attaches to the skull. There is no erythema or warmth noted. There is no cervical lymphadenopathy. Eyes PERRL and EOMs intact bilaterally Neck no lymphadenopathy, supple and no JVD Cardio regular rate, regular rhythm, S1 normal heart sound, S2 normal heart sound and no murmurs Neuro oriented x3 and CN's II-XII intact bilaterally Sensorium / Orientation: alert Psych mental status grossly normal Skin no rashes or lesions noted and skin turgor normal Skin Narrative: Described in the HEENT portion of the EMR MDM MDM MDM Narrative Medical decision making narrative: Suspect patient has a small abscess versus a infected sebaceous cyst. Plan is I&D. Patient was consented for I&D. Patient area was prepped draped. Local anesthetic. Small incision was made with 15 blade. The capsule of the infected sebaceous cyst was entered. There was small amount of cottage cheeselike material that was expressed from the cystic lesion. Nurse applied dressing and patient was discharged home in stable improved condition. Procedures Other Procedures Procedure(s): I&D of infected sebaceous cyst described under the MDM/plan section of the EMR Discharge Plan Triage Chief Complaint: Ear Problem ED Provider: Junior Jo Dx/Rx/DC Orders Clinical Impression: Infected sebaceous cyst of skin Instructions: ED Abscess Incision And ... Prescriptions: No Action Slynd 4 mg (28) tablet 1 tab PO DAILY Patient Comments: TAKE 1 TABLET BY MOUTH EVERY DAY ondansetron 4 mg tablet,disintegrating 4 mg PO Q8H PRN PRN (Reason: Nausea) Qty: 10 0RF Primary Care Provider: Alee Guillaume Referrals: Alee Guillaume, [employer]MENT SPECIALIST-C [Primary Care Provider] - 3-5 Days if not improving Print Language: German Disposition Disposition: Home, Self Care
[2025-06-30] MEDS: Lidocaine 1% (20 ml mdv) 20 ML Vial INFILT (21:33)
[2025-06-30 23:06] VITALS: BP 113/64; PULSE 72; RESP 16; TEMP 36.6; O2SAT 100
== END 2025-06-30 23:07 | disposition home or self-care (01) ==
PROVIDERS: Emergency Provider Emergency Medicine; PCP Nurse Practitioner Family; Visit Provider Emergency Medicine
DX: L72.3 Sebaceous cyst (principal)
CPT/HCPCS: 10060; 69000; 99282

== ENCOUNTER 2025-07-14 22:19 | Emergency (ER) | payer MEDICAID, SELFPAY ==
[2025-07-14 22:20] VITALS: BP 143/87; PULSE 76; RESP 16; TEMP 37; O2SAT 100; BMI 30.9
--- NOTE | 2025-07-14 22:53 | EDS_ITS ---
HPI History of Present Illness Chief Complaint: Chest Other Informant: patient Onset/Context/Timing Onset: Days (2) Context: Gradual Onset Timing: Continuous Quality: Sharp, throbbing Location: Left shoulder, left upper chest Worsened by: Expiration Relieved by: Nothing Narrative Narrative: Patient presents with pain in her left shoulder and left upper chest that has been constant for the past 2 days. Patient describes it as sharp and throbbing. Patient states it is worse with expiration. Patient states nothing makes it better. Patient states she took ibuprofen tonight with no improvement. Patient denies any fevers or chills. Patient denies any shortness of breath. Patient states that sometimes she feels like her heart is racing. Patient denies any nausea or vomiting. Patient denies any diaphoresis. PFSH PFSH Medical History no medical history no medical history Home Medications ?Medication ?Instructions ?Recorded ?Last Taken ?Type drospirenone (contraceptive) 4 mg 1 tab PO DAILY 07/17 Unknown History (28) tablet (Slynd) ondansetron 4 mg disintegrating 4 mg PO Q8H PRN PRN Na usea #10 tabs 10/27/24 Unknown Rx tablet naproxen 500 mg tablet 500 mg PO BID PRN #20 tabs 0 07/14/25 Unknown Rx Allergy/AdvReac Type Severity Reaction Status Date / Time No Known Allergies Allergy Verified 07/14/25 22:21 Surgical History Hx of wisdom tooth extraction Social History Smoking Status: Never smoker ROS ROS ED Constitutional Constitutional ED: Denies chills or fever(s) Eyes Eyes: Denies blurry vision or change in vision ENT ENT ED: Denies rhinorrhea or sore throat Cardiovascular Cardiovascular: Reports chest pain and racing heartbeat Respiratory/Chest Respiratory/Chest: Denies cough or dyspnea Gastrointestinal Gastrointestinal: Denies nausea or vomiting Genitourinary Genitourinary ED: Denies dysuria or hematuria Musculoskeletal Musculoskeletal: Reports back pain; Denies neck pain Integumentary Denies abscess or rash Neurologic Neurologic: Reports headache(s); Denies weakness Allergic/Immunologic Allergic/Immunologic ED: Denies mouth swelling or urticaria EXAM Physical Exam Const Vital Signs: 07/14/25 22:20 07/14/25 22:38 Temperature 98.6 F Temperature Source Oral Pulse Rate 76 Respiratory Rate 16 Respiratory Effort Normal Respiratory Pattern Normal Blood Pressure 143/87 H Blood Pressure Mean 105 Pulse Ox 100 Oxygen Delivery Method Room Air Positive well nourished and well developed Constitutional Narrative: BMI is 30.9. General Appearance ED: well developed and NAD HEENT Reports moist mucous membranes Neck no lymphadenopathy, supple and no JVD Chest Wall Chest Narrative: There is tenderness over the left upper chest wall and left lateral chest wall. There is no bony crepitance or step-off. There is no subcutaneous emphysema palpated. Resp normal respiratory effort and clear to auscultation bilaterally Cardio regular rate and regular rhythm GI non-tender and non-distended Palpation: soft Extremity Extremity Narrative: There is mild tenderness over the left shoulder region. There is no edema or ecchymosis. There is no bony crepitance or step-off. There is no deformity noted. Range of motion is limited in all motions of the left shoulder secondary to pain. Strength is 5/5 bilateral in the upper extremities. There are no sensory deficits noted. Radial pulses are equal bilaterally. Neuro oriented x3, CN's II-XII intact bilaterally and no sensory deficits noted Sensorium / Orientation: alert Motor Exam: strength 5/5 throughout Psych mental status grossly normal MDM MDM MDM Narrative Medical decision making narrative: Differential diagnosis includes musculoskeletal pain, anxiety, pneumothorax, pneumonia, bronchitis, electrolyte abnormality, pulmonary embolism, and viral illness. Chest x-ray will be obtained to assess for pneumonia, bronchitis, pneumothorax. X-rays of the left shoulder will be obtained to assess for degenerative arthritis. CBC will be obtained to assess for leukocytosis and anemia. Basic metabolic profile will be obtained to assess for electrolyte abnormality and renal function. D-dimer will be obtained to assess for pulmonary embolism. Lab Data Attestation: I reviewed the patient's lab results. Lab results narrative: CBC was reviewed and was within normal limits. Basic metabolic profile was reviewed and was within normal limits. Serum hCG was reviewed and was negative. D-dimer was reviewed and was less than 0.27. Labs: Laboratory Results - last 24 hr 07/14/25 23:05 WBC 8.7 RBC 4.13 L Hgb 12.5 Hct 37.0 MCV 89.6 MCH 30.3 MCHC 33.8 RDW Std Deviation 43.5 RDW Coeff of Shadia 13.2 Plt Count 278 MPV 9.4 Immature Gran % (Auto) 0.200 Neut % (Auto) 47.1 Lymph % (Auto) 42.4 H Hendricks % (Auto) 8.0 Eos % (Auto) 2.1 Baso % (Auto) 0.2 Absolute Neuts (auto) 4.1 Absolute Lymphs (auto) 3.67 Nucleated RBC % 0 D-Dimer Quant (PE/DVT) < 0.27 L Sodium 140 Potassium 3.7 Chloride 107 Carbon Dioxide 20.7 L Anion Gap 12 BUN 15 Creatinine 1.02 Estim Creat Clear Calc 85.46 Est GFR (MDRD) Non-Af 79 BUN/Creatinine Ratio 14.4 Glucose 116 H Calcium 9.4 Serum , Qual NEGATIVE Radiography Chest X-Ray - ED: 2 View, Read by ED Physician, Read by Radiologist and No Acute Disease Diagnostic Testing: Clinical Impression(s) from Imaging Studies Chest X-Ray 07/14/25 23:25 IMPRESSION: No acute cardiopulmonary abnormalities. Reading Location: [facility] Shoulder X-Ray 07/14/25 23:25 IMPRESSION: No acute osseous abnormalities. Reading Location: [facility] PA and lateral chest x-ray was obtained. There are 2 views. On my independent interpretation, lung aiken are clear. There is normal cardiac silhouette. Bony thorax is normal. There is no acute process noted. Radiologist also interpreted the x-ray and agrees. X-rays of the left shoulder were obtained. There are 4 views. On my independent interpretation, there is no acute fracture or dislocation noted. There are no degenerative changes noted. There is no rib fracture noted. Radiologist also interpreted the x-rays and agrees. Treatment and Re-Evaluation :: Patient was given IV fluids. Patient was advised of her findings. Patient was advised that this could be musculoskeletal pain. Patient was given an injection of Toradol here. Patient was given a prescription for Naprosyn. Patient was instructed use ice to the area. Patient was instructed to follow-up with her primary care physician in 5 to 7 days. Patient understood and was agreeable with the plan. All questions were answered. Discharge Plan Triage Chief Complaint: Chest Other ED Provider: Duane Sarah Dx/Rx/DC Orders Clinical Impression: Chest pain, Pain of left shoulder region Instructions: ED Chest Pain, Uncertain Cause Prescriptions: New naproxen 500 mg tablet 500 mg PO BID PRN Qty: 20 0RF No Action Slynd 4 mg (28) tablet 1 tab PO DAILY Patient Comments: TAKE 1 TABLET BY MOUTH EVERY DAY ondansetron 4 mg tablet,disintegrating 4 mg PO Q8H PRN PRN (Reason: Nausea) Qty: 10 0RF Primary Care Provider: Alee Guillaume Referrals: Alee Guillaume, [facility] [Primary Care Provider] - 5-7 Days Print Language: Mongolian Disposition Disposition: Home, Self Care
[2025-07-14 23:15] LABS: Hematocrit 37.0 % (37-47); Hemoglobin 12.5 g/dL (12.0-15.0); Immature Granulocytes Count 0.020 X10^3/uL (0.0-0.0); Mean Corp Hgb Conc 33.8 g/dL (32-36); Mean Corpuscular Volume 89.6 fL (81-99); Mean Platelet Vol. 9.4 fl (6.2-12.0); NRBC Flagged by Analyzer 0 % (0-5); Platelet Count 278 K/mm3 (150-450); RBC Distribution Width CV 13.2 % (11.6-14.6); RBC Distribution Width SD 43.5 fl (35.1-43.9); Red Blood Count 4.13 M/mm3 (4.2-5.4); White Blood Count 8.7 K/mm3 (4.4-11.0)
--- NOTE | 2025-07-14 23:25 | RAD_ITS ---
PROCEDURE: CHEST PA AND LATERAL 07/14/2025 REASON FOR EXAM: PAIN TECHNIQUE: CHEST PA AND LATERAL COMPARISON: 10/27/2024. FINDINGS: The heart is normal in size. The lungs are clear. No pleural effusion or pneumothorax. RAD/Chest PA and Lateral IMPRESSION: No acute cardiopulmonary abnormalities. Reading Location: [id number]
--- NOTE | 2025-07-14 23:25 | RAD_ITS ---
PROCEDURE: SHOULDER MIN 2 VIEWS 07/14/2025 REASON FOR EXAM: INJURY/PAIN TECHNIQUE: SHOULDER MIN 2 VIEWS Laterality: FINDINGS: No evidence acute fracture or dislocation. The joint spaces are maintained. No acute soft tissue abnormalities. RAD/Shoulder min 2 Views IMPRESSION: No acute osseous abnormalities. Reading Location: [id number]
[2025-07-14 23:33] LABS: D-Dimer Quantitative (DVT/PE) < 0.27 FEU/ug/m (0.27-0.49); Internal QC Validated? YES +Cl - CLEAR BKGD; Pregnancy, Serum, hCG Quali. NEGATIVE Negative; Record Kit Lot#, Serum Preg. 962302
[2025-07-14 23:38] LABS: Anion Gap 12 (5-15); BUN 15 mg/dL (4-19); BUN/Creat Ratio 14.4 RATIO (10-20); Calcium,Total 9.4 mg/dL (7.6-11.0); Carbon Dioxide 20.7 mmol/L (21.0-32.0); Chloride 107 mmol/L (98-108); Estimated Creatinine Clearance 85.46 ml/min (50-250); Glucose 116 mg/dL (70-99); Potassium 3.7 mmol/L (3.3-5.1)
[2025-07-14] MEDS: 0.9% Normal Saline (1000mL) 1,000 ML 1000 ML IV (23:40)
[2025-07-15] MEDS: Ketorolac 30 MG/ML Syringe IV (00:11)
[2025-07-15 00:15] VITALS: BP 129/78; PULSE 72; RESP 18; TEMP 37; O2SAT 99
== END 2025-07-15 00:16 | disposition home or self-care (01) ==
PROVIDERS: Emergency Provider Emergency Medicine; PCP Nurse Practitioner Family; Visit Provider Emergency Medicine
DX: R07.9 Chest pain, unspecified (principal); M25.512 Pain in left shoulder
CPT/HCPCS: 71046; 73030; 80048; 84703; 85025; 85379; 96361; 96374; 99284; A4216

== ENCOUNTER → 2025-09-26 | Outpatient (CLI) | payer MEDICAID, SELFPAY ==
[2025-09-26 15:06] LABS: Hematocrit 39.9 % (37-47); Hemoglobin 13.1 g/dL (12.0-15.0); Immature Granulocytes Count 0.010 X10^3/uL (0.0-0.0); Mean Corp Hgb Conc 32.8 g/dL (32-36); Mean Corpuscular Volume 91.1 fL (81-99); Mean Platelet Vol. 9.8 fl (6.2-12.0); NRBC Flagged by Analyzer 0 % (0-5); Platelet Count 343 K/mm3 (150-450); RBC Distribution Width CV 13.5 % (11.6-14.6); RBC Distribution Width SD 45.6 fl (35.1-43.9); Red Blood Count 4.38 M/mm3 (4.2-5.4); White Blood Count 5.8 K/mm3 (4.4-11.0)
[2025-09-26 18:14] LABS: AST(SGOT) 18 U/L (<=31); Alanine Aminotransfer ALT/SGPT 18 U/L (<=34); Albumin, Serum 4.0 g/dL (3.5-5.0); Alkaline Phosphatase 75 U/L (35-104); Anion Gap 10 (5-15); BUN 15 mg/dL (4-19); BUN/Creat Ratio 18.4 RATIO (10-20); Calcium,Total 9.6 mg/dL (7.6-11.0); Carbon Dioxide 23.7 mmol/L (21.0-32.0); Chloride 109 mmol/L (98-108); Ferritin 56 ng/mL (22-378); Globulin 2.8 g/dL (2.2-4.2); Glucose 86 mg/dL (70-99); Iron 30 ug/dL (50-170); Iron Binding Capacity,Total 321 ug/dL (250-450); Iron Binding Capacity,Unsat 291 ug/dL (228-428); Potassium 4.3 mmol/L (3.3-5.1); Vitamin D,25 Hydroxy 15.6 ng/mL (30-100)
== END | disposition home or self-care (01) ==
LOC: VSLAB 08:55
PROVIDERS: PCP Nurse Practitioner Family; Visit Provider Nurse Practitioner Family
DX: N92.0 Excessive and frequent menstruation with regular cycle (principal); E55.9 Vitamin D deficiency, unspecified
CPT/HCPCS: 36415; 80053; 82306; 82728; 83540; 83550; 85025